=== PATIENT | female | born 1970 | race Caucasian/White ===

== ENCOUNTER 2017-05-04 20:57 | Emergency (ER) | payer BC ==
[~2017-05-04] VITALS: Ht 165.1 cm; Wt 80.0 kg
[2017-05-04 21:11] VITALS: BP 133/74; PULSE 130; RESP 18; TEMP 98.9; O2SAT 94
[2017-05-04] MEDS ORDERED: SODIUM CHLOR 0.9% 1000 ML INJ 1,000 ML IV ONE ×2 (21:11→22:45)
[2017-05-04] MEDS ORDERED: SODIUM CHLORIDE 0.9% FLUSH 10 ML FLUSH IVF PRN (21:15)
--- NOTE | 2017-05-04 21:18 | PD ---
HPI Chief Complaint: Seizure Time Seen by Provider: 21:11 Travel History International Travel<30 days: No Contact w/Intl Traveler<30days: No Traveled to known affect area: No History of Present Illness HPI 46-year-old female arrives by EMS. EMS reports that the patient evidently had a 4 minute post ictal state as witnessed by family members. No seizure-like activity was observed. Patient had normal neurologic exam upon her arrival and offered no complaint other than personal stress. Blood glucose on scene was 160. Heart rate was 120 and the blood pressure was 139/90. Patient has no history of seizures. She reports drinking alcohol, about 3 drinks daily and she drank 3 drinks tonight as well. She reports lately she has been drinking and eating less as part of an effort to lose weight. She reports a recent gastrointestinal viral type syndrome as well as insomnia. She has been vomiting in the mornings lately. She's had no headache and has none in the ER. Additional history offered by the family notes the patient was at dinner and put her head down and was unresponsive for about 3 minutes. It appeared as though she had a fine tremor during that time. She has no chest pain or shortness of breath. [facility] Past Medical History ?: Not LMP: April 2017 Social History Tobacco Use: No Allergies-Medications (Allergen,Severity, Reaction): Coded Allergies: No Known Allergies (Unverified , 05/04/17) Reported Meds & Prescriptions Reported Meds & Active Scripts Active No Active Prescriptions or Reported Medications Review of Systems Except as stated in HPI: all other systems reviewed are Neg General / Constitutional: No: Fever Neurologic: Positive: Seizures (apparent postictal state) Physical Exam Narrative GENERAL: 46-year-old female well-nourished well-developed no acute distress SKIN: Warm and dry. HEAD: Atraumatic. Normocephalic. EYES: Pupils equal and round. No scleral icterus. No injection or drainage. ENT: No nasal bleeding or discharge. Mucous membranes pink and moist. NECK: Trachea midline. No JVD. CARDIOVASCULAR: Regular rate and rhythm. RESPIRATORY: No accessory muscle use. Clear to auscultation. Breath sounds equal bilaterally. GASTROINTESTINAL: Abdomen soft, non-tender, nondistended. Hepatic and splenic margins not palpable. MUSCULOSKELETAL: Extremities without clubbing, cyanosis, or edema. No obvious deformities. NEUROLOGICAL: Awake and alert. No obvious cranial nerve deficits. Motor grossly within normal limits. Five out of 5 muscle strength in the arms and legs. Normal speech. PSYCHIATRIC: Appropriate mood and affect; insight and judgment normal. Data Data Last Documented VS Vital Signs Date Time Temp Pulse Resp B/P Pulse Ox O2 Delivery O2 Flow Rate FiO2 05/05/17 01:17 120 18 134/64 97 05/05/17 00:55 Room Air 05/04/17 21:11 98.9 Vital signs reviewed Orders Complete Blood Count With Diff (05/04/17 21:11) Basic Metabolic Panel (Bmp) (05/04/17 21:11) Alcohol (Ethanol) (05/04/17 21:11) Drug Screen, Random Urine (05/04/17 21:11) Electrocardiogram (05/04/17 ) Ct Brain W/O Iv Contrast(Rout) (05/04/17 ) Blood Glucose (05/04/17 21:11) Ecg Monitoring (05/04/17 21:11) Iv Access Insert/Monitor (05/04/17 21:11) Oximetry (05/04/17 21:11) Sodium Chlor 0.9% 1000 Ml Inj (Ns 1000 M (05/04/17 21:11) Sodium Chloride 0.9% Flush (Ns Flush) (05/04/17 21:15) Potassium Chloride (Kcl) (05/04/17 22:30) Sodium Chlor 0.9% 1000 Ml Inj (Ns 1000 M (05/04/17 22:45) Basic Metabolic Panel (Bmp) (05/04/17 22:46) Lorazepam Inj (Ativan Inj) (05/05/17 00:30) Labs Laboratory Tests Test 05/04/17 05/04/17 05/04/17 21:30 23:15 23:25 White Blood Count 9.4 TH/MM3 Red Blood Count 3.53 MIL/MM3 Hemoglobin 9.6 GM/DL Hematocrit 29.5 % Mean Corpuscular Volume 83.8 FL Mean Corpuscular Hemoglobin 27.1 PG Mean Corpuscular Hemoglobin 32.3 % Concent Red Cell Distribution Width 16.0 % Platelet Count 271 TH/MM3 Mean Platelet Volume 7.5 FL Neutrophils (%) (Auto) 47.7 % Lymphocytes (%) (Auto) 40.5 % Monocytes (%) (Auto) 9.3 % Eosinophils (%) (Auto) 1.3 % Basophils (%) (Auto) 1.2 % Neutrophils # (Auto) 4.5 TH/MM3 Lymphocytes # (Auto) 3.8 TH/MM3 Monocytes # (Auto) 0.9 TH/MM3 Eosinophils # (Auto) 0.1 TH/MM3 Basophils # (Auto) 0.1 TH/MM3 CBC Comment DIFF FINAL Differential Comment Sodium Level 137 MEQ/L 141 MEQ/L Potassium Level 2.9 MEQ/L 3.5 MEQ/L Chloride Level 96 MEQ/L 105 MEQ/L Carbon Dioxide Level 25.0 MEQ/L 22.6 MEQ/L Anion Gap 16 MEQ/L 13 MEQ/L Blood Urea Nitrogen 5 MG/DL 4 MG/DL Creatinine 0.89 MG/DL 0.73 MG/DL Estimat Glomerular Filtration 68 ML/MIN 86 ML/MIN Rate Random Glucose 133 MG/DL 146 MG/DL Calcium Level 8.5 MG/DL 7.8 MG/DL Ethyl Alcohol Level 245 MG/DL Urine Opiates Screen NEG Urine Barbiturates Screen NEG Urine Amphetamines Screen NEG Urine Benzodiazepines Screen NEG Urine Cocaine Screen NEG Urine Cannabinoids Screen NEG MDM Medical Decision Making Medical Screen Exam Complete: Yes Emergency Medical Condition: Yes Differential Diagnosis Seizure, epilepsy, intracranial mass, alcohol withdrawal, alcoholism, electrolyte imbalance Narrative Course CBC & BMP Diagram 05/04/17 21:30 EKG reveals a sinus tachycardia with a rate of 127 Alcohol level is 245 Of note the patient reports heavy vaginal bleeding associated with every other menstrual period. Evidently the heavy bleeding last for 2 weeks requiring several pads daily at least. She denies a history of anemia for which she is aware. Patient received 2 L normal saline. Repeat chemistry reveals: A potassium 3.5 and an anion gap of 13. Diagnosis Primary Impression: Seizure Additional Impressions: Alcohol intoxication Qualified Code: F10.929 - Alcohol intoxication, with unspecified complication Hypokalemia Anemia Qualified Code: D64.9 - Anemia, unspecified type Referrals: Primary Care Physician 2 days Additional Instructions: You have a choice when it comes to health care, and we are glad that you chose [facility]. Hopefully, we have met your expectations on today's visit. You are welcome to return to [facility] at any time, as we are committed to meeting the health care needs of our community. Med/Other Pt SpecificInfo: No Change to Meds Scripts No Active Prescriptions or Reported Meds Disposition: 01 DISCHARGE HOME Condition: See You MD May 04, 2017 21:18
[2017-05-04 22:05] LABS: AUTOMATED NEUTROPHIL # 4.5 TH/MM3 (1.8-7.7); BASOPHIL # 0.1 TH/MM3 (0-0.2); BASOPHIL % 1.2 % (0.0-2.0); EOSINOPHIL # 0.1 TH/MM3 (0-0.4); EOSINOPHIL % 1.3 % (0.0-4.0); HEMATOCRIT 29.5 % (35.0-46.0); HEMO FLAGS DIFF FINAL; LYMPH % 40.5 % (9.0-44.0); LYMPHOCYTE # 3.8 TH/MM3 (1.0-4.8); MEAN CELL VOLUME 83.8 FL (80.0-100.0); MEAN CORPUSCULAR HEMOGLOBIN 27.1 PG (27.0-34.0); MEAN CORPUSCULAR HGB CONC 32.3 % (32.0-36.0); MONO % 9.3 % (0.0-8.0); NEUT % 47.7 % (16.0-70.0); PLATELET COUNT 271 TH/MM3 (150-450); RED BLOOD COUNT 3.53 MIL/MM3 (4.00-5.30); WHITE BLOOD COUNT 9.4 TH/MM3 (4.0-11.0)
[2017-05-04 22:24] LABS: POTASSIUM 2.9 MEQ/L (3.5-5.1)
[2017-05-04] MEDS ORDERED: POTASSIUM CHLORIDE 20 MEQ CONTROLLED RELEASE TAB PO ONE (22:30)
[2017-05-04 22:47] VITALS: BP 144/86; PULSE 128; RESP 16; O2SAT 96
[2017-05-04 23:35] LABS: AMPHETAMINE, URINE NEG (NEG); BARBITURATES, URINE NEG (NEG); COCAINE, URINE NEG (NEG)
--- NOTE | 2017-05-04 23:44 | RADRPT ---
EXAM DATE/TIME: 05/04/2017 23:16 [facility] COMPARISON: No previous studies available for comparison. INDICATIONS : Dizziness. Seizure. RADIATION DOSE: 56.35 CTDIvol (mGy) MEDICAL HISTORY : None SURGICAL HISTORY : None. ENCOUNTER: Initial ACUITY: 1 day PAIN SCALE: 0/10 LOCATION: cranial TECHNIQUE: Multiple contiguous axial images were obtained of the head. Using automated exposure control and adj ustment of the mA and/or kV according to patient size, radiation dose was kept as low as reasonably a chievable to obtain optimal diagnostic quality images. DICOM format image data is available electro nically for review and comparison. FINDINGS: CEREBRUM: The ventricles are normal for age. No evidence of midline shift, mass lesion, hemorrhage or acute in farction. No extra-axial fluid collections are seen. POSTERIOR FOSSA: The cerebellum and brainstem are intact. The 4th ventricle is midline. The cerebellopontine angle i s unremarkable. EXTRACRANIAL: The visualized portion of the orbits is intact. SKULL: The calvaria is intact. No evidence of skull fracture. CONCLUSION: 1. No evidence of acute intracranial pathology. No masses are identified. Peter Aguayo MD on May 04, 2017 at 23:42 Board Certified Radiologist. This report was verified electronically.
[2017-05-05] MEDS ORDERED: LORazepam 2 MG/ML VIAL IV PUSH ONE (00:30)
[2017-05-05 00:55] VITALS: BP 144/89; PULSE 125; RESP 18; O2SAT 97
[2017-05-05 01:01] LABS: BICARBONATE 22.6 MEQ/L (21.0-32.0); POTASSIUM 3.5 MEQ/L (3.5-5.1)
[2017-05-05 01:17] VITALS: BP 134/64
--- NOTE | 2017-05-07 18:12 | EKG ---
Date Performed: 05/04/2017 Time Performed: 22:33:10 PTAGE: 46 years EKG: SINUS TACHYCARDIA ABNORMAL RHYTHM ECG NO PREVIOUS TRACING DOCTOR: New Mota Interpretating Date/Time 05/07/2017 18:10:48
== END 2017-05-05 01:20 | disposition home or self-care (01) ==
LOC: NEPE 20:57
DX: R56.9 Unspecified convulsions (principal); F10.929 Alcohol use, unspecified with intoxication, unspecified; E87.6 Hypokalemia; D64.9 Anemia, unspecified; Y90.8 Blood alcohol level of 240 mg/100 ml or more
CPT/HCPCS: 70450; 80048; 80307; 85025; 93005; 96361; 96374; 99285; J2060; J7030